=== PATIENT | female | born 1935 ===

== ENCOUNTER 2023-12-01 05:30 | Day surgery (SDC) | payer OTHER ==
[2023-11-23 14:43] VITALS: BP 160/80
[~2023-12-01] VITALS: Ht 144.8 cm; Wt 48.5 kg
[~2023-12-01 05:30] MED LIST: IRBESARTAN150 MG PO; [UNRECOGNIZED DRUG - OTHER]
[2023-12-01] MEDS ORDERED: BUPIVACAINE HCL/MPF 0.5% 30ML VIAL ONE (07:10)
[2023-12-01] MEDS ORDERED: CEFAZOLIN SODIUM 1,000 MG VIAL ONE (07:11)
[2023-12-01] MEDS ORDERED: MORPHINE SULFATE 4 MG/ML VIAL IV ONE (10:10)
== END 2023-12-01 12:05 | disposition home or self-care (01) ==
LOC: CIR.AMB 05:30
PROVIDERS: ATTEND Surgery
DX: K80.12 Calculus of gallbladder with acute and chronic cholecystitis without obstruction (principal); K81.1 Chronic cholecystitis; Z88.6 Allergy status to analgesic agent; J45.909 Unspecified asthma, uncomplicated; I10 Essential (primary) hypertension